=== PATIENT | male | born 1990 | race Caucasian/White ===

== ENCOUNTER 2017-02-24 18:32 | Emergency (ER) | payer OTHER ==
[~2017-02-24] VITALS: Wt 72.6 kg
[2017-02-24 19:06] LABS: HEMATOCRIT 48.4 % (42.0-52.0); HEMOGLOBIN 17.1 g/dl (14.0-18.0); MEAN CELL VOLUME 90.8 fl (80.0-94.0); MEAN CORPUSCULAR HGB 32.1 pg (27.0-31.0); MEAN CORPUSCULAR HGB CONC 35.3 g/dl (33.0-37.0); MEAN PLATELET VOLUME 10.5 fl (9.6-12.3); PLATELET COUNT AUTOMATED 252 10*3/uL (130-400); RED BLOOD COUNT 5.33 10*6/uL (4.50-5.90); WHITE BLOOD COUNT 18.4 10*3/uL (4.8-10.8)
[2017-02-24 19:06] LABS: BILIRUBIN NEGATIVE (NEGATIVE); BLOOD TRACE-INTACT (NEGATIVE); CLARITY CLEAR (CLEAR); COLOR YELLOW (YELLOW); GLUCOSE NEGATIVE (NEGATIVE); KETONE NEGATIVE (NEGATIVE); LEUKO ESTERASE NEGATIVE (NEGATIVE); NITRITE NEGATIVE (NEGATIVE); SPECIFIC GRAVITY <= 1.005 (1.005-1.030); UROBILINOGEN 0.2 E.U./dl (0.2-1.0)
[2017-02-24 19:12] LABS: BACTERIA TRACE
[2017-02-24 19:21] LABS: BUN 13 mg/dl (7-24); CHLORIDE 105 mmol/L (98-107); CREATININE 1.29 mg/dL (0.70-1.30); POTASSIUM 4.2 mmol/L (3.5-5.1); SGOT/AST 23 IU/L (3-35); SGPT/ALT 41 U/L (12-78); SODIUM 141 mmol/L (136-145)
[2017-02-24 19:22] LABS: ALKALINE PHOSPHATASE 87 U/L (45-117)
[2017-02-24 19:23] LABS: ATYPICAL LYMPHS 3 % (0-0); TOTAL CELLS COUNTED 100 #CELLS
[2017-02-24 19:24] LABS: PLATELET SUFFICIENCY NORMAL (NORMAL)
[2017-02-24] MEDS ORDERED: KETOROLAC10 MG PO (21:08)
[2017-02-24] MEDS ORDERED: MACROBID100 M1 PO (21:08)
== END 2017-02-24 21:14 | disposition home or self-care (01) ==
LOC: ED 18:32
PROVIDERS: Nurse Practitioner Family
DX: N20.0 Calculus of kidney (principal); F17.200 Nicotine dependence, unspecified, uncomplicated; Z88.1 Allergy status to other antibiotic agents

== ENCOUNTER 2017-04-28 14:20 | Emergency (ER) | payer OTHER ==
[~2017-04-28] VITALS: Ht 187.9 cm; Wt 77.1 kg
[~2017-04-28 14:20] MED LIST: KETOROLAC10 MG PO; MACROBID100 M1 PO
[2017-04-28] MEDS ORDERED: NORCO 5-325 TA1 EACH PO (16:27)
[2017-04-28] MEDS ORDERED: SEPTDS PO (16:55)
== END 2017-04-28 16:30 | disposition home or self-care (01) ==
LOC: ED 14:20
DX: S62.655A Nondisplaced fracture of middle phalanx of left ring finger, initial encounter for closed fracture (principal); S61.215A Laceration without foreign body of left ring finger without damage to nail, initial encounter; F17.200 Nicotine dependence, unspecified, uncomplicated; Z88.1 Allergy status to other antibiotic agents; W45.8XXA Other foreign body or object entering through skin, initial encounter; Y93.89 Activity, other specified; Y92.89 Other specified places as the place of occurrence of the external cause; Y99.8 Other external cause status

== ENCOUNTER 2017-09-05 19:03 | Emergency (ER) | payer OTHER ==
[~2017-09-05] VITALS: Ht 182.8 cm; Wt 72.6 kg
[~2017-09-05 19:03] MED LIST changes: +NORCO 5-325 TA1 EACH PO; +SEPTDS PO
[2017-09-05] MEDS ORDERED: IBUPROFEN600 MG PO (21:14)
== END 2017-09-05 22:10 | disposition home or self-care (01) ==
LOC: ED 19:03
DX: S46.211A Strain of muscle, fascia and tendon of other parts of biceps, right arm, initial encounter (principal); F17.200 Nicotine dependence, unspecified, uncomplicated; Z79.899 Other long term (current) drug therapy; Z88.1 Allergy status to other antibiotic agents; X58.XXXA Exposure to other specified factors, initial encounter; Y93.89 Activity, other specified; Y92.89 Other specified places as the place of occurrence of the external cause; Y99.9 Unspecified external cause status

== ENCOUNTER 2017-09-26 21:23 | Emergency (ER) | payer OTHER ==
[~2017-09-26] VITALS: Ht 182.8 cm; Wt 75.7 kg
[~2017-09-26 21:23] MED LIST changes: +IBUPROFEN600 MG PO
[2017-09-26 21:53] LABS: BILIRUBIN NEGATIVE (NEGATIVE); BLOOD TRACE-INTACT (NEGATIVE); CLARITY CLEAR (CLEAR); COLOR YELLOW (YELLOW); GLUCOSE NEGATIVE (NEGATIVE); KETONE NEGATIVE (NEGATIVE); LEUKO ESTERASE NEGATIVE (NEGATIVE); NITRITE NEGATIVE (NEGATIVE); UROBILINOGEN 0.2 E.U./dl (0.2-1.0)
[2017-09-26 22:03] LABS: BACTERIA 2+; EPITHELIAL CELLS 0-2
[2017-09-26 22:53] LABS: BASO % 0.3 % (0.0-1.0); EOS % 0.4 % (1.0-4.0); HEMOGLOBIN 15.6 g/dl (14.0-18.0); LYMPH # 2.5 10*3/uL (1.3-4.4); LYMPH % 34.1 % (27.0-41.0); MEAN CORPUSCULAR HGB 31.9 pg (27.0-31.0); MEAN CORPUSCULAR HGB CONC 35.5 g/dl (33.0-37.0); MEAN PLATELET VOLUME 10.7 fl (9.6-12.3); MONO # 0.5 10*3/uL (0.1-1.0); MONO % 7.4 % (3.0-9.0); NEUT # 4.2 10*3/uL (2.3-7.9); NEUT % 57.5 % (47.0-73.0); PLATELET COUNT AUTOMATED 238 10*3/uL (130-400); RED BLOOD COUNT 4.89 10*6/uL (4.50-5.90); RED CELL DISTRI WIDTH 12.4 % (0-14.5); WHITE BLOOD COUNT 7.3 10*3/uL (4.8-10.8)
[2017-09-26 23:08] LABS: ALBUMIN 4.2 gm/dl (3.1-4.5); ALKALINE PHOSPHATASE 70 U/L (45-117); BUN 7 mg/dl (7-24); CHLORIDE 105 mmol/L (98-107); CREATININE 0.92 mg/dL (0.70-1.30); LIPASE 167 U/L (73-393); POTASSIUM 3.5 mmol/L (3.5-5.1); SGOT/AST 23 IU/L (3-35); SGPT/ALT 34 U/L (12-78); SODIUM 141 mmol/L (136-145); TOTAL PROTEIN 7.4 gm/dL (6.4-8.2)
[2017-09-27] MEDS ORDERED: IBUPROFEN600 MG PO (00:50)
== END 2017-09-27 02:41 | disposition home or self-care (01) ==
LOC: ED 21:23
PROVIDERS: Emergency Medicine; Physician Assistant
DX: N23 Unspecified renal colic (principal); F17.200 Nicotine dependence, unspecified, uncomplicated; Z88.1 Allergy status to other antibiotic agents

== ENCOUNTER 2017-12-21 00:28 | Emergency (ER) | payer OTHER ==
[~2017-12-21] VITALS: Ht 182.8 cm; Wt 68.0 kg
[2017-12-21 01:02] LABS: BASO % 0.4 % (0.0-1.0); BILIRUBIN NEGATIVE (NEGATIVE); BLOOD NEGATIVE (NEGATIVE); CLARITY CLEAR (CLEAR); COLOR YELLOW (YELLOW); EOS # 0.1 10*3/uL (0.0-0.4); EOS % 1.1 % (1.0-4.0); GLUCOSE NEGATIVE (NEGATIVE); HEMATOCRIT 46.7 % (42.0-52.0); HEMOGLOBIN 16.1 g/dl (14.0-18.0); KETONE NEGATIVE (NEGATIVE); LEUKO ESTERASE NEGATIVE (NEGATIVE); LYMPH # 3.7 10*3/uL (1.3-4.4); LYMPH % 38.9 % (27.0-41.0); MEAN CELL VOLUME 91.6 fl (80.0-94.0); MEAN CORPUSCULAR HGB 31.6 pg (27.0-31.0); MEAN CORPUSCULAR HGB CONC 34.5 g/dl (33.0-37.0); MEAN PLATELET VOLUME 10.8 fl (9.6-12.3); MONO # 0.5 10*3/uL (0.1-1.0); MONO % 5.5 % (3.0-9.0); NEUT # 5.1 10*3/uL (2.3-7.9); NEUT % 53.9 % (47.0-73.0); NITRITE NEGATIVE (NEGATIVE); PLATELET COUNT AUTOMATED 231 10*3/uL (130-400); RED CELL DISTRI WIDTH 11.9 % (0-14.5); SPECIFIC GRAVITY <= 1.005 (1.005-1.030); UROBILINOGEN 0.2 E.U./dl (0.2-1.0); WHITE BLOOD COUNT 9.5 10*3/uL (4.8-10.8)
[2017-12-21 01:16] LABS: ALBUMIN 4.2 gm/dl (3.1-4.5); ALKALINE PHOSPHATASE 79 U/L (45-117); BUN 13 mg/dl (7-24); CHLORIDE 103 mmol/L (98-107); CREATININE 1.18 mg/dL (0.70-1.30); LIPASE 179 U/L (73-393); POTASSIUM 3.8 mmol/L (3.5-5.1); SGOT/AST 9 IU/L (3-35); SGPT/ALT 21 U/L (12-78); SODIUM 139 mmol/L (136-145); TOTAL PROTEIN 7.7 gm/dL (6.4-8.2)
[2017-12-21] MEDS ORDERED: Orphenadrine C100 MG PO (02:40)
[2017-12-21] MEDS ORDERED: Motrin,Rufen800 MG PO (02:40)
== END 2017-12-21 03:02 | disposition home or self-care (01) ==
LOC: ED 00:28
PROVIDERS: Emergency Medicine Emergency Medical Services
DX: N20.0 Calculus of kidney (principal); N39.0 Urinary tract infection, site not specified; B96.20 Unspecified Escherichia coli [E. coli] as the cause of diseases classified elsewhere; Z88.1 Allergy status to other antibiotic agents; Z87.442 Personal history of urinary calculi

== ENCOUNTER 2018-04-25 19:26 | Emergency (ER) | payer OTHER ==
[~2018-04-25] VITALS: Ht 182.8 cm; Wt 72.6 kg
[~2018-04-25 19:26] MED LIST changes: +Motrin,Rufen800 MG PO; +Orphenadrine C100 MG PO
[2018-04-25] MEDS ORDERED: ANTIBIOTIC28.4 GM T (20:09)
== END 2018-04-25 20:30 | disposition home or self-care (01) ==
LOC: ED 19:26
DX: S61.214A Laceration without foreign body of right ring finger without damage to nail, initial encounter (principal); Z88.1 Allergy status to other antibiotic agents; W26.0XXA Contact with knife, initial encounter; Y93.G1 Activity, food preparation and clean up; Y92.89 Other specified places as the place of occurrence of the external cause; Y99.8 Other external cause status

== ENCOUNTER 2018-09-06 22:40 | Emergency (ER) | payer OTHER ==
[~2018-09-06] VITALS: Ht 182.8 cm; Wt 72.6 kg
[~2018-09-06 22:40] MED LIST changes: +ANTIBIOTIC28.4 GM T
[2018-09-28] MEDS ORDERED: CYCLOBENZAPRINE10 MG PO (00:16)
[2018-09-28] MEDS ORDERED: Motrin,Rufen800 MG PO (00:16)
[2018-09-28] MEDS ORDERED: MEDROL DOSEPAK4 MG PO (00:16)
== END 2018-09-07 01:25 | disposition home or self-care (01) ==
LOC: ED 22:40
DX: S00.83XA Contusion of other part of head, initial encounter (principal); S00.33XA Contusion of nose, initial encounter; K40.90 Unilateral inguinal hernia, without obstruction or gangrene, not specified as recurrent; Z88.1 Allergy status to other antibiotic agents; Z88.6 Allergy status to analgesic agent; Z79.899 Other long term (current) drug therapy; W22.8XXA Striking against or struck by other objects, initial encounter; Y93.89 Activity, other specified; Y92.89 Other specified places as the place of occurrence of the external cause; Y99.8 Other external cause status

== ENCOUNTER 2019-01-22 21:34 | Emergency (ER) | payer SELFPAY ==
[~2019-01-22] VITALS: Ht 182.8 cm; Wt 63.5 kg
[~2019-01-22 21:34] MED LIST changes: +CYCLOBENZAPRINE10 MG PO; +MEDROL DOSEPAK4 MG PO
[2019-01-22 22:03] LABS: BILIRUBIN NEGATIVE (NEGATIVE); BLOOD 3+ (NEGATIVE); CLARITY TURBID (CLEAR); COLOR ORANGE (YELLOW); GLUCOSE NEGATIVE (NEGATIVE); KETONE NEGATIVE (NEGATIVE); LEUKO ESTERASE TRACE (NEGATIVE); NITRITE NEGATIVE (NEGATIVE)
[2019-01-22 22:16] LABS: BASO # 0.1 10*3/uL (0.0-0.1); BASO % 0.5 % (0.0-1.0); EOS # 0.1 10*3/uL (0.0-0.4); EOS % 1.1 % (1.0-4.0); HEMATOCRIT 46.2 % (42.0-52.0); HEMOGLOBIN 16.2 g/dl (14.0-18.0); LYMPH # 3.9 10*3/uL (1.3-4.4); LYMPH % 33.8 % (27.0-41.0); MEAN CELL VOLUME 91.5 fl (80.0-94.0); MEAN CORPUSCULAR HGB 32.1 pg (27.0-31.0); MEAN CORPUSCULAR HGB CONC 35.1 g/dl (33.0-37.0); MEAN PLATELET VOLUME 10.8 fl (9.6-12.3); MONO # 0.7 10*3/uL (0.1-1.0); MONO % 6.3 % (3.0-9.0); NEUT # 6.7 10*3/uL (2.3-7.9); PLATELET COUNT AUTOMATED 279 10*3/uL (130-400); RED BLOOD COUNT 5.05 10*6/uL (4.50-5.90); RED CELL DISTRI WIDTH 12.1 % (0-14.5); WHITE BLOOD COUNT 11.6 10*3/uL (4.8-10.8)
[2019-01-22 22:28] LABS: RBC TNTC rbc/hpf (0-2)
[2019-01-22 22:35] LABS: ALBUMIN 4.2 gm/dl (3.1-4.5); ALKALINE PHOSPHATASE 107 U/L (45-117); BUN 14 mg/dl (7-24); CHLORIDE 108 mmol/L (98-107); LIPASE 270 U/L (73-393); POTASSIUM 3.6 mmol/L (3.5-5.1); SGOT/AST 23 IU/L (3-35); SGPT/ALT 30 U/L (12-78); SODIUM 142 mmol/L (136-145); TOTAL PROTEIN 7.6 gm/dL (6.4-8.2)
[2019-01-23] MEDS ORDERED: NORCO 5-325 TA1 EACH PO (00:21)
[2019-01-23] MEDS ORDERED: ZOFRAN4 MG PO (00:21)
[2019-01-23] MEDS ORDERED: FLOMAX0.4 MG PO (00:21)
[2019-01-23] MEDS ORDERED: MEDROL DOSEPAK4 MG PO (00:56)
== END 2019-01-23 01:23 | disposition home or self-care (01) ==
LOC: ED 21:34
PROVIDERS: Emergency Medicine Emergency Medical Services
DX: N20.1 Calculus of ureter (principal); F17.200 Nicotine dependence, unspecified, uncomplicated; Z88.1 Allergy status to other antibiotic agents; Z88.6 Allergy status to analgesic agent; Z87.442 Personal history of urinary calculi

== ENCOUNTER 2019-02-17 20:11 | Emergency (ER) | payer MEDICAID ==
[~2019-02-17] VITALS: Ht 182.8 cm; Wt 68.0 kg
[~2019-02-17 20:11] MED LIST changes: +FLOMAX0.4 MG PO; +ZOFRAN4 MG PO
== END 2019-02-17 21:52 | disposition home or self-care (01) ==
LOC: ED 20:11
DX: S52.502A Unspecified fracture of the lower end of left radius, initial encounter for closed fracture (principal); F17.200 Nicotine dependence, unspecified, uncomplicated; Z88.1 Allergy status to other antibiotic agents; Z88.6 Allergy status to analgesic agent; W22.8XXA Striking against or struck by other objects, initial encounter; Y93.89 Activity, other specified; Y92.89 Other specified places as the place of occurrence of the external cause; Y99.8 Other external cause status

== ENCOUNTER 2020-01-12 15:37 | Emergency (ER) | payer SELFPAY ==
[~2020-01-12] VITALS: Ht 182.8 cm; Wt 77.1 kg
[2020-01-12] MEDS ORDERED: NAPROXEN250 MG PO (17:17)
[2020-01-12] MEDS ORDERED: TYLENOL325 M1 PO (17:17)
== END 2020-01-12 17:42 | disposition home or self-care (01) ==
LOC: ED 15:37
DX: R07.89 Other chest pain (principal); F17.200 Nicotine dependence, unspecified, uncomplicated; Z88.8 Allergy status to other drugs, medicaments and biological substances; Z79.899 Other long term (current) drug therapy

== ENCOUNTER 2020-05-26 22:38 | Emergency (ER) | payer SELFPAY ==
[~2020-05-26] VITALS: Ht 182.8 cm; Wt 72.6 kg
[~2020-05-26 22:38] MED LIST changes: +NAPROXEN250 MG PO; +TYLENOL325 M1 PO
[2020-05-26] MEDS ORDERED: OMNICEF300 MG PO (23:03)
[2020-05-26] MEDS ORDERED: ZYRTEC10 M2 PO (23:03)
== END 2020-05-26 23:28 | disposition home or self-care (01) ==
LOC: ED 22:38
DX: H66.91 Otitis media, unspecified, right ear (principal); Z88.1 Allergy status to other antibiotic agents; Z88.6 Allergy status to analgesic agent

== ENCOUNTER 2021-11-30 11:17 | Emergency (ER) | payer SELFPAY ==
[~2021-11-30] VITALS: Wt 72.6 kg
[~2021-11-30 11:17] MED LIST changes: +OMNICEF300 MG PO; +ZYRTEC10 M2 PO
[2021-11-30 12:02] LABS: BASO # 0.1 10*3/uL (0.0-0.1); BASO % 0.6 % (0.0-1.0); EOS % 0.3 % (1.0-4.0); HEMATOCRIT 46.1 % (42.0-52.0); LYMPH # 2.1 10*3/uL (1.3-4.4); LYMPH % 21.5 % (27.0-41.0); MEAN CELL VOLUME 88.8 fl (80.0-94.0); MEAN CORPUSCULAR HGB 30.8 pg (27.0-31.0); MEAN CORPUSCULAR HGB CONC 34.7 g/dl (33.0-37.0); MEAN PLATELET VOLUME 9.9 fl (9.6-12.3); MONO # 0.5 10*3/uL (0.1-1.0); MONO % 5.2 % (3.0-9.0); NEUT # 7.1 10*3/uL (2.3-7.9); NEUT % 71.7 % (47.0-73.0); PLATELET COUNT AUTOMATED 289 10*3/uL (130-400); RED BLOOD COUNT 5.19 10*6/uL (4.50-5.90); RED CELL DISTRI WIDTH 12.5 % (0-14.5); WHITE BLOOD COUNT 9.9 10*3/uL (4.8-10.8)
[2021-11-30 12:27] LABS: ALKALINE PHOSPHATASE 85 U/L (45-117); BUN 10 mg/dl (7-24); CHLORIDE 111 mmol/L (98-107); CREATININE 0.94 mg/dL (0.70-1.30); POTASSIUM 3.5 mmol/L (3.5-5.1); SGOT/AST 59 IU/L (3-35); SGPT/ALT 74 U/L (12-78); SODIUM 138 mmol/L (136-145); TOTAL PROTEIN 7.5 gm/dL (6.4-8.2)
== END 2021-11-30 13:00 | disposition home or self-care (01) ==
LOC: ED 11:17
PROVIDERS: Nurse Practitioner Family
DX: B34.9 Viral infection, unspecified (principal); Z20.822 Contact with and (suspected) exposure to COVID-19; F17.200 Nicotine dependence, unspecified, uncomplicated; Z79.899 Other long term (current) drug therapy; Z88.1 Allergy status to other antibiotic agents; Z88.6 Allergy status to analgesic agent

== ENCOUNTER 2025-01-15 15:33 | Emergency (ER) | payer OTHER ==
[2025-01-15] MEDS ORDERED: Naloxone Hydrochloride 2 MG/2 ML SYR ONE (15:50)
[2025-01-15] MEDS ORDERED: Naloxone Hydrochloride 2 MG/2 ML SYR IV ONE (16:05)
[2025-01-15] MEDS ORDERED: Ondansetron Hydrochloride 4 MG/2 ML VIAL IV ONE (16:05)
== END 2025-01-15 16:28 | disposition left against medical advice (07) ==
LOC: ED 15:33
DX: T40.2X1A Poisoning by other opioids, accidental (unintentional), initial encounter (principal); R40.4 Transient alteration of awareness; Z88.1 Allergy status to other antibiotic agents; Z88.6 Allergy status to analgesic agent; Z88.8 Allergy status to other drugs, medicaments and biological substances; Z79.899 Other long term (current) drug therapy; Y92.89 Other specified places as the place of occurrence of the external cause